=== PATIENT | female | born 1950 | race African-American/Black ===

== ENCOUNTER 2017-12-06 12:16 | Emergency (ER) | payer MEDICARE, OTHER ==
[2017-12-06 13:06] LABS: ADD MAN DIFF? NO
[2017-12-06 13:09] LABS: WHITE BLOOD COUNT 7.1 10^3/ul (4.8-10.8)
[2017-12-06 13:09] LABS: BASOPHILS % 0.4 % (0.0-2.0); EOSINOPHILS # 0.1 10^3/ul (0.0-0.5); EOSINOPHILS % 1.3 % (0.0-7.0); HEMATOCRIT 43.6 % (37.0-47.0); HEMOGLOBIN 14.6 g/dl (12.0-16.0); LYMPHOCYTES # 1.2 10^3/ul (0.8-2.9); LYMPHOCYTES % 16.3 % (15.0-51.0); MEAN CORPUSCULAR HEMOGLOBIN 29.9 pg (29.0-33.0); MEAN CORPUSCULAR HGB CONC 33.5 g/dl (32.0-37.0); MEAN CORPUSCULAR VOLUME 89.3 fl (82.0-101.0); MEAN PLATELET VOLUME 8.6 fl (7.4-10.4); MONOCYTE # 0.5 10^3/ul (0.3-0.9); MONOCYTES % 6.7 % (0.0-11.0); NEUTROPHIL # 5.3 10^3/ul (1.6-7.5); RED BLOOD COUNT 4.88 10^6/ul (4.20-5.40); RED CELL DISTRIBUTION WIDTH 13.3 % (11.5-14.5)
[2017-12-06 13:18] LABS: PLATELET COUNT 323 10^3/UL (140-415); POSITIVE DIFF @See below
[2017-12-06 13:27] LABS: ANION GAP 23 (8-16); BLOOD UREA NITROGEN 20 mg/dl (7-20); CALCIUM 10.4 mg/dl (8.4-10.2); CARBON DIOXIDE 17 mmol/L (21-31); CHLORIDE 103 mmol/L (97-110); CREATININE 1.44 mg/dl (0.44-1.00); GLUCOSE 332 mg/dl (70-220); POTASSIUM 3.8 mmol/L (3.5-5.1); SODIUM 139 mmol/L (135-144)
[2017-12-06 13:35] LABS: B-TYPE NATRIURETIC PEPTIDE 37 PG/ML (0-125)
[2017-12-06] MEDS: LORAZEPAM 0.5 MG TAB PO (13:44)
[2017-12-06 14:31] LABS: INR 0.93; PROTIME 12.6 Sec (11.9-14.9)
[2017-12-06 14:32] LABS: PARTIAL THROMBOPLASTIN TIME 25.7 Sec (25.0-35.0)
[2017-12-06 14:39] LABS: TROPONIN-I < 0.012 ng/ml (0.00-0.12)
[2017-12-06] MEDS ORDERED: INSULIN LISPRO 100 UNIT/ML VIAL SC (14:44)
== END 2017-12-06 16:43 | disposition home or self-care (01) ==
LOC: E/R 12:16
DX: F41.9 Anxiety disorder, unspecified (principal); E11.65 Type 2 diabetes mellitus with hyperglycemia; N28.9 Disorder of kidney and ureter, unspecified; I10 Essential (primary) hypertension; J44.9 Chronic obstructive pulmonary disease, unspecified; Z79.4 Long term (current) use of insulin; Z79.82 Long term (current) use of aspirin
CPT/HCPCS: 71045; 80048; 82962; 83880; 84484; 85025; 85610; 85730; 93005; 99285-25